=== PATIENT | male | born 1955 | race Caucasian/White ===

== ENCOUNTER 2018-03-26 16:13 | Outpatient (CLI) | payer OTHER | END 2018-03-26 16:14 | disposition EMS.NT | LOC: EMS 16:13 | PROVIDERS: ATTEND Surgery | DX: S01.81XA Laceration without foreign body of other part of head, initial encounter (principal); W10.8XXA Fall (on) (from) other stairs and steps, initial encounter; Y92.008 Other place in unspecified non-institutional (private) residence as the place of occurrence of the external cause ==

== ENCOUNTER 2018-03-26 17:14 | Emergency (ER) | payer OTHER ==
[2018-03-26] MEDS ORDERED: BUFFERED LIDOCAINE 10 ML SYRINGE SUBQ ONE (17:29)
--- NOTE | 2018-03-26 17:30 | ED Physician Documentation ---
PD HPI HEAD INJURY - Stated complaint Stated Complaint: HEAD LAC/GLF - Chief complaint Chief Complaint: Laceration - History obtained from History obtained from: Patient, Family () - History of Present Illness Mechanism of head injury: Fell (62-year-old gentleman with Parkinson's took a fall into a door hitting a panel and has a laceration on the forehead. Tetanus is up-to-date, 4 years ago. No loss of consciousness or headache. No other injuries.) Review of Systems Constitutional: denies: Fever, Chills Cardiac: denies: Chest pain / pressure, Palpitations Respiratory: denies: Dyspnea, Cough PD PAST MEDICAL HISTORY - Past Medical History Past Medical History: Yes Neuro: Parkinson's - Past Surgical History Past Surgical History: Yes Ortho: Arthroscopic surgery - Present Medications Home Medications: Ambulatory Orders Medication Instructions Recorded Confirmed Carbidopa/Levodopa 25/100 [Sinemet 1 each PO TID 03/26/18 03/26/18 25 mg/100 mg] Hydrocodone/Acetaminophen 1 - 2 each PO Q6H PRN #10 tablet 03/26/18 [Hydrocodon-Acetaminophen 5-325] rOPINIRole [Requip] 0.25 mg PO TID 03/26/18 03/26/18 - Allergies Allergies/Adverse Reactions: Allergies Allergy/AdvReac Type Severity Reaction Status Date / Time No Known Drug Allergies Allergy Verified 03/26/18 17:21 - Social History Does the pt smoke?: No Smoking Status: Never smoker Does the pt drink ETOH?: No Does the pt have substance abuse?: No - Immunizations Immunizations are current?: Yes PD ED PE NORMAL - Vitals Vital signs reviewed: Yes - General General: Alert and oriented X 3, Other (Parkinsonian tremor and gait) - HEENT HEENT: PERRL, Other (There is a 4 cm semicircular laceration over the mid to right forehead) - Neck Neck: Supple, no meningeal sign, No bony TTP - Extremities Extremities: No deformity, No tenderness to palpate - Neuro Neuro: Alert and oriented X 3, cigar brander 2-12 intact Eye Opening: Spontaneous Motor: Obeys Commands Verbal: Oriented GCS Score: 15 - Psych Psych: Normal mood, Normal affect Results - Vitals Vitals: Vital Signs - 24 hr 03/26/18 17:18 Temperature 36.8 C Heart Rate 76 Respiratory 16 Rate Blood Pressure 145/92 H O2 Saturation 99 Oxygen O2 Source Room air - Rads (name of study) CT head Radiology: EMP read contemporaneously (NAD) Procedures - Laceration (location) forehead Length in cm: 4 Wound type: Curved, Into muscle, Clean Anesthesia: Lidocaine 1%, With bicarb Wound Preparation: Irrigated copiously NS Deep layer closure: Vicryl, size #-0 - enter number (5-0), # sutures - enter number (3) Skin layer closure: Prolene, Running, Size #-0 - enter number (6-0) Other: Tetanus UTD Complexity: Simple Departure - Departure Disposition: 01 Home, Self Care Clinical Impression: Laceration Head injury Qualifiers: Encounter type: initial encounter Qualified Code(s): S09.90XA - Unspecified injury of head, initial encounter Condition: Good Record reviewed to determine appropriate education?: Yes Instructions: ED Head Injury Closed, ED Laceration Facial Sutr Tape Prescriptions: Hydrocodone/Acetaminophen [Hydrocodon-Acetaminophen 5-325] 1 - 2 each PO Q6H PRN #10 tablet PRN Reason: pain Comments: Come back for any signs of infection which would include: Redness, swelling, drainage, increased pain, or fevers. Follow-up with your physician in 7 days for suture removal. Your blood pressure was elevated today on check into the emergency department. This does not mean that you have hypertension, it is a common phenomenon to come to the emergency department and have elevated blood pressure. I recommend that you see your primary care physician within the week to have it rechecked when you are feeling better.
--- NOTE | 2018-03-26 18:12 | CT Report ---
Reason: head inj Procedure Date: 03/26/2018 Accession Number: [id number] / [id number] Procedure: CT - Head W/O CPT Code: FULL RESULT: EXAM: CT HEAD EXAM DATE: 03/26/2018 05:47 PM. CLINICAL HISTORY: Head inj. Frontal laceration COMPARISON: None. TECHNIQUE: Multiaxial CT images were obtained from the foramen magnum to the vertex. Reformats: Sagittal and coronal. IV contrast: None. In accordance with CT protocol optimization, one or more of the following dose reduction techniques were utilized for this exam: automated exposure control, adjustment of mA and/or KV based on patient size, or use of iterative reconstructive technique. FINDINGS: Parenchyma: No intraparenchymal hemorrhage. No evidence of mass, midline shift, or CT findings of infarction. [place]-white differentiation is distinct. Extraaxial Spaces: Normal for age. No subdural or epidural collections identified. Ventricles: Normal in size and position. Sinuses and Orbits: Mucosal thickening right ethmoid sinus Imaged orbits, and mastoids show no significant abnormality. Bones: No evidence of fracture or calvarial defect. Other: Soft tissue laceration right frontal region IMPRESSION: Normal head CT. [facility]
[2018-03-26] MEDS ORDERED: HYDROcod/ACET 5/325 Prepack 4 PO STA (18:16)
[2018-03-26] MEDS ORDERED: BACITRACIN OINT TOP ONE (18:24)
[2018-03-26 18:47] VITALS: BP 121/64
== END 2018-03-26 18:48 | disposition home or self-care (01) ==
LOC: ED 17:14
DX: S01.81XA Laceration without foreign body of other part of head, initial encounter (principal); W01.198A Fall on same level from slipping, tripping and stumbling with subsequent striking against other object, initial encounter; G20 Parkinson's disease
CPT/HCPCS: 12013; 70450; 99283; A9270